=== PATIENT | female | born 1980 | race Caucasian/White ===

== ENCOUNTER 2016-10-09 23:58 | Emergency (ER) | payer MEDICAID ==
[2016-10-10 00:08] VITALS: BP 134/73
--- NOTE | 2016-10-10 02:32 | EDM.PDOC ---
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 LMP 08/02/2016. G8 T3 . She states that she developed lower abdominal cramps this afternoon. No vaginal bleeding. No recent nausea, vomiting , diarrhea, urinary symptoms, or fever. She states that she has had constipation for the past 2 days. No prior similar symptoms, however, the patient states that with her 4 previous miscarriages, she did not have vaginal bleeding, either. The patient's Plant Wire Chief is Dr. Wagner, however, she has not seen her for this . The patient states that she was seen at the [facility] 2 days ago, where a progesterone level was checked and found to be low, and a quantitative hCG was checked, with the results still pending. The patient has not had an obstetric ultrasound for this . The patient's PCP is Fiona Tello. 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: 3 - Past Surgical History Female Surgical History: Reports: Section (x 3), D&C (x 2), Other ( See Below) (D&E x 1) Oncologic Surgical History: Reports: None Social & Family History - Family History Family Medical History: Noncontributory - Tobacco Use Smoking Status *Q: Never Smoker Second Hand Smoke Exposure: No - Alcohol Use Alcohol Use History: No Days Per Week of Alcohol Use: 0 - Recreational Drug Use Recreational Drug Use: No - Living Situation & Occupation Living situation: Reports: , with Spouse, with Family (3 kids) 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) ED ROS GENERAL - Review of Systems Review Of Systems: See Below Constitutional: Reports: No Symptoms HEENT: Reports: No Symptoms Respiratory: Reports: No Symptoms Cardiovascular: Reports: No Symptoms Endocrine: Reports: No Symptoms GI/Abdominal: Reports: No Symptoms : Reports: No Symptoms Musculoskeletal: Reports: No Symptoms Skin: Reports: No Symptoms Neurological: Reports: No Symptoms Psychiatric: Reports: No Symptoms Hematologic/Lymphatic: Reports: No Symptoms Immunologic: Reports: No Symptoms ED EXAM - Physical Exam Exam: See Below Exam Limited By: No Limitations General Appearance: Alert, WD/WN, No Apparent Distress Eye Exam: Bilateral Eye: Normal Inspection Ears: Normal External Exam, Hearing Grossly Normal Nose: Normal Inspection, No Blood Throat/Mouth: Normal Inspection, Normal Lips, Normal Voice, No Airway Compromise Head: Atraumatic, Normocephalic Neck: Normal Inspection, Full Range of Motion Respiratory/Chest: No Respiratory Distress, Lungs Clear, Normal Breath Sounds, No Accessory Muscle Use Cardiovascular: Normal Peripheral Pulses, Regular Rate, Rhythm, No Gallop, No JVD, No Murmur, No Rub GI/Abdominal Exam: Normal Bowel Sounds, Soft, Non-Tender, No Organomegaly, No Distention, No Abnormal Bruit, No Mass, Pelvis Stable Rectal Exam: Deferred Back Exam: Normal Inspection, Full Range of Motion Extremities: Normal Inspection, Normal Range of Motion, No Pedal Edema, Normal Capillary Refill Neurological: Alert, Oriented, Normal Cognition, No Motor/Sensory Deficits Psychiatric: Normal Affect Skin Exam: Warm, Dry, Intact, Normal Color, No Rash Lymphatic: No Adenopathy Course - Vital Signs Last Recorded V/S: Last Vital Signs Temp 36.3 C 10/10/16 00:05 Pulse 82 10/10/16 00:05 Resp 16 10/10/16 00:05 BP 134/73 10/10/16 00:05 Pulse Ox 100 10/10/16 00:05 - Orders/Labs/Meds Labs: Laboratory Tests 10/10/16 10/10/16 Range/Units 00:15 00:55 HCG, Quant 96242.0 mIU/mL Urine Color Light yellow (Yellow) Urine Appearance Clear (Clear) Urine pH 6.5 (5.0-8.0) Ur Specific Martin 1.015 (1.005-1.030) Urine Protein Negative (Negative) Urine Glucose (UA) Negative (Negative) Urine Ketones Negative (Negative) Urine Occult Blood 1+ H (Negative) Urine Nitrite Negative (Negative) Urine Bilirubin Negative (Negative) Urine Urobilinogen 0.2 (0.2-1.0) Ur Leukocyte Esterase Trace H (Negative) Urine RBC 0-5 (0-5) /hpf Urine WBC 0-5 (0-5) /hpf Ur Epithelial Cells 0-5 (0-5) /hpf Urine Bacteria Few (FEW) /hpf Urine Mucus Not seen (FEW) /hpf - Re-Assessments/Exams Free Text/Narrative Re-Assessment/Exam: 10/10/16 02:28 Test results discussed with the patient and her . As the patient's presentation is not a medical emergency, ultrasound is not available in the middle the night. I offered to arrange for an obstetric ultrasound at 7:30 this morning, but she declined. She will follow-up with Dr. Wagner at a previously scheduled appointment. Departure - Departure Time of Disposition: 02:29 Disposition: Home, Self-Care 01 Condition: Good Clinical Impression: Abdominal cramps, - Discharge Information Instructions: First Trimester of Referrals: Sharmin Wagner MD [Primary Care Provider] - Forms: ED Department Discharge Additional Instructions: You were seen in the emergency room for lower abdominal cramps, without vaginal bleeding. Workup in the ER included a urinalysis and quantitative hCG. Your urinalysis was normal. You do not have a urinary tract infection. Your quantitative hCG is 61,789. An offer of an obstetric ultrasound to be performed at 7:30 this morning was offered, but declined. Please follow-up with your Plant Wire Chief, Dr. Wagner, at your previously scheduled appointment. If any other problems, please do not hesitate to return to the ER.
== END 2016-10-10 02:40 | disposition home or self-care (01) ==
LOC: JD.ED 23:58
DX: O99.89 Other specified diseases and conditions complicating pregnancy, childbirth and the puerperium (principal); R10.30 Lower abdominal pain, unspecified; Z88.5 Allergy status to narcotic agent; Z88.8 Allergy status to other drugs, medicaments and biological substances; Z3A.09 9 weeks gestation of pregnancy
CPT/HCPCS: 36415; 81001; 84702; 99282; 99284

== ENCOUNTER 2017-11-21 18:27 | Inpatient (IN) | payer MEDICAID ==
[2017-11-21] MEDS ORDERED: Lactated Ringers 1,000 ML IV ONE (19:24)
[2017-11-21] MEDS ORDERED: Ondansetron 4 MG in Sodium Chloride 0.9% 50 ML IV PRN (19:26)
[2017-11-21] MEDS ORDERED: Metoclopramide 10 MG/2 ML SDV ONE (20:04)
[2017-11-21] MEDS ORDERED: Citric Acid/Sodium Citrate Solution 30 ML Cup ONE (20:05)
[2017-11-21] MEDS ORDERED: Lactated Ringers 1,000 ML ONE ×3 (20:08→22:03)
[2017-11-21] MEDS ORDERED: Sodium Chloride 0.9% 10 ML Syringe FLUSH PRN (20:10)
[2017-11-21] MEDS ORDERED: Citric Acid/Sodium Citrate Solution 30 ML Cup PO ONE (20:10)
[2017-11-21] MEDS ORDERED: ceFAZolin 2 GM in Premix Bag 1 BAG IV ONE (20:10)
[2017-11-21] MEDS ORDERED: Metoclopramide 10 MG/2 ML SDV IVPUSH ONE (20:10)
[2017-11-21] MEDS ORDERED: Ondansetron 4 MG/2 ML SDV IVPUSH ONE (20:11)
[2017-11-21] MEDS ORDERED: Bupivacaine 0.75%/D5W 2 ML Amp ONE (20:13)
[2017-11-21] MEDS ORDERED: Oxytocin 10 Units/1 ML SDV ONE ×2 (20:13→22:35)
[2017-11-21] MEDS ORDERED: Morphine PF 10 MG/10 ML SDV ONE (20:13)
[2017-11-21] MEDS ORDERED: Ondansetron 4 MG/2 ML SDV ONE (20:13)
[2017-11-21] MEDS ORDERED: Oxytocin/Lactated Ringers 10 UNIT/1,000 ML BAG IV SCH (20:15)
[2017-11-21] MEDS ORDERED: Lactated Ringers 1,000 ML IV SCH (20:15)
--- NOTE | 2017-11-21 20:16 | PCM.LDHP ---
L&D History of Present Illness - General Date of Service: 11/21/17 Admit Problem/Dx: Admission Diagnosis/Problem Admission Diagnosis/Problem 11/21/17 20:06 Lori is a 37-year-old 9 para 3053 white female admitted in early labor. She is gregorio every 3 minutes, pain is described as 8 on a scale of 10. She has a history of 3 sections and has a repeat scheduled for 11/30/2017 which happens to be her due date. Source of Information: Patient History Limitations: Reports: No Limitations - History of Present Illness Introduction:: 37-year-old 9 para 3053 female with NISHI of 11/30/2017 presently at 37-6/ 7 weeks gestational age is had 2 days of contractions which now this afternoon have increased in frequency and intensity. They're occurring every 3 minutes reportedly 8 on a pain scale of 10. She denies any bleeding, any leakage of fluid. The baby has been active. Patient for repeat section. The procedure, risks, benefits, alternatives of care including a trial of labor I discussed used to tilt patient. She appears understand, wishes to proceed and has signed a consent. 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 Her is dated by an ultrasound done on 2017 but also an exact, definite LMP of 03/02/2017. Patient was seen early in the on 04/27/2017 at 8 weeks gestational age. She is seen on a regular basis. She made approximately a Ree pound weight gain during the course of principal 152 pounds to 155 pounds. Her vital signs are stable throughout . Fundal height growth was appropriate. Plan was to do a repeat section on 11/30/2017. Blood is A+ with negative antibody screen. First laboratory testing showed a hemoglobin 11.2 and platelets of 290,000. Rubella titer shows immunity. Second trimester hemoglobin was 10.6 at which time patient was started on iron therapy. Her platelets are 254,000. One-hour GTT was elevated at 157. 139. TSH was 2.0normal. Her RPR was nonreactive. Hepatitis B surface antigen and hepatitis C titers were both nonreactive. Chlamydia and gonorrhea both negative. She is group B strep negative. Allergies: 1. Dilaudid which causes her swelling 2. Gluten Medications: 1. vitamins daily 2. Baby aspirin daily 3. Iron supplementation daily Past medical history: 1. Recurrent loss 5 Past surgical history: 1. 3 2. D&C 3 4. Hysteroscopy 5. Diagnostic laparoscopy Family history: Mother and father alive and well. Patient has 3 siblings. They are all healthy. No anesthesia, bleeding, blood clotting problems noted family. Social history patient is , is José, she does not use any significant most alcohol drugs tobacco. 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 She lives in [place]. Review of systems: In general patient presently is having contractions causing her pain 10/29. Ports good activity. She denies any bleeding or loss of vaginal fluid. She has had some nausea and last 2 days with contractions and has had some diarrhea. No one else is sick around her. Skin: Negative Cardiovascular: No chest pain or exercise tolerance Respiratory: No active symptoms or shortness of breath Breasts: Unremarkable. Changes only associated with . Patient undecided about breast-feeding. GI: Nausea and emesis along with diarrhea as above. : Increased fundal height consistent with dates Musculoskeletal: Some edema in lower extremities Neurological: Negative Physical exam: Vital signs are stable, patient is afebrile. On last evaluation in clinic her blood pressure was 126/70. As 92. Weight was 155 pounds. Total weight was 152 pounds. In general patient is well-developed, well-nourished, pleasant feels stated age in acute distress. Skin is warm dry without lesions. HEENT, neck and back within normal Lungs are clear with good breath sounds in all lung stafford. Cardiovascular exam shows regular and rhythm without murmurs. Breast exam is deferred. Abdomen is previous with fundal height consistent with 37 week . Cervical exam done by the nurse shows cervix to be 1 cm, thin, soft. Extremities neurological exam are grossly within normal limits. 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: , Spontaneous Other OB/BYN History: cervical cryotherapy Endocrine/Metabolic History: Reports: Diabetes, Gestational - Past Surgical History HEENT Surgical History: Reports: Oral Surgery Other HEENT Surgeries/Procedures: [place] teeth Female Surgical History: Reports: Section, D&C, Dilitation & Evacuation, Other (See Below) Oncologic Surgical History: Reports: None Social & Family History - Family History Family Medical History: Noncontributory - Tobacco Use Smoking Status *Q: Former Smoker Used Tobacco, but Quit: No Second Hand Smoke Exposure: No - Caffeine Use Caffeine Use: Reports: None - Recreational Drug Use Recreational Drug Use: No - Living Situation & Occupation Living situation: Reports: , with Spouse, with Family (3 kids) 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) H&P Review of Systems - Review of Systems: Review Of Systems: See Below L&D Exam - Exam Exam: See Below - Vital Signs Vital Signs: Last Vital Signs Temp 36.8 C 11/21/17 19:19 Pulse 87 11/21/17 19:19 Resp 18 11/21/17 19:19 BP 127/76 11/21/17 19:19 Pulse Ox Weight: 72.121 kg - Patient Data Lab Results Last 24 hrs: Laboratory Results - last 24 hr 11/21/17 Range/Units 19:40 WBC 8.94 (3.98-10.04) K/mm3 RBC 2.91 L (3.98-5.22) M/mm3 Hgb 8.3 L (11.2-15.7) gm/L Hct 25.6 L (34.1-44.9) % MCV 88.0 (79.4-94.8) fl MCH 28.5 (25.6-32.2) pg MCHC 32.4 (32.2-35.5) g/dl RDW Std Deviation 42.8 (36.4-46.3) fL Plt Count 218 (182-369) K/mm3 MPV 9.3 L (9.4-12.3) fl Result Diagrams: 11/21/17 19:40 Problem List Initiated/Reviewed/Updated: Yes Orders Last 24hrs: Active Orders 24 hr Category Date Time Status NPO [Nothing Per Oral Diet] [DIET] Diet 11/21/17 Dinner Active CMP [COMPREHENSIVE METABOLIC PN,CMP] [CHEM] Stat Lab 11/21/17 19:40 Received TYPE AND SCREEN [BBK] Stat Lab 11/21/17 19:40 Received UA W/MICROSCOPIC [URIN] Routine Lab 11/21/17 19:24 Ordered Lactated Ringers [Ringers, Lactated] 1,000 ml Med 11/21/17 19:24 Active IV .BOLUS Ondansetron [Zofran] 4 mg Med 11/21/17 19:26 Active Sodium Chloride 0.9% [Normal Saline] 50 ml IV Q4H Schedule Procedure [COMM] Stat Oth 11/21/17 20:05 Ordered Medication Orders Lactated Ringer's (Ringers, Lactated) 1,000 mls @ 999 mls/hr IV .BOLUS ONE Stop: 11/21/17 20:24 Last Admin: 11/21/17 19:20 Dose: 999 mls/hr Ondansetron HCl 4 mg/ Sodium (Chloride) 52 mls @ 100 mls/hr IV Q4H PRN PRN Reason: nausea and vomiting Assessment/Plan Comment:: 1. 37-6/7 week intrauterine , active labor, 2 previous 3 with desire for repeat section 2. Group B strep screen negative 3. Undecided about nursing 4. They'll titer shows immunity 5. History of recurrent losses first and second trimester. 6. History of baby aspirin usage during recent Plan: 1. Repeat lower segment transverse section through Rohit skin incision under spinal block. Procedure, risks, benefits, alternatives of care discussed in detail patient and her . They appear to understand, wish to proceed and signed a consent 2. DVT prophylaxis with SCDs 3. Infection prophylaxis with Ancef 2 g IV preop 4. Routine preoperative lab evaluation CBC, urinalysis, type and screen 5. Encouraged nursing.
[2017-11-21] MEDS ORDERED: Bupivacaine 0.5% 30 ML SDV ONE (20:17)
[2017-11-21] MEDS ORDERED: ePHEDrine 50 MG/ML SDV IVPUSH PRN ×2 (21:23→23:20)
[2017-11-21] MEDS ORDERED: Ondansetron 4 MG/2 ML SDV IVPUSH PRN (21:23)
[2017-11-21] MEDS ORDERED: fentaNYL 100 MCG/2 ML SDV IVPUSH PRN (21:23)
[2017-11-21] MEDS ORDERED: Meperidine PF 50 MG/ML Syringe IVPUSH PRN (21:23)
[2017-11-21] MEDS ORDERED: diphenhydrAMINE 50 MG/ML SDV IVPUSH PRN ×2 (21:23→23:20)
--- NOTE | 2017-11-21 21:23 | PCM.PREANE ---
Preanesthetic Assessment - Procedure Proposed Procedure: Urgent C Section - Anesthesia/Transfusion/Family Hx Anesthesia History: Prior Anesthesia Without Reaction Family History of Anesthesia Reaction: No Transfusion History: No Prior Transfusion(s) - Review of Systems General: No Symptoms Pulmonary: No Symptoms Cardiovascular: No Symptoms Gastrointestinal: No Symptoms Neurological: No Symptoms Other: Reports: Diabetes (Gestational DM) - Physical Assessment NPO Status Date: 11/21/17 NPO Status Time: 15:00 Respiratory Rate: 18 Vital Signs: Last Vital Signs Temp 36.8 C 11/21/17 19:19 Pulse 87 11/21/17 19:19 Resp 18 11/21/17 19:19 BP 127/76 11/21/17 19:19 Pulse Ox Height: 1.5 m Weight: 72.121 kg ASA Class: 2E Mental Status: Alert & Oriented x3 Airway Class: Mallampati = 2 Dentition: Reports: Normal Dentition Thyro-Mental Finger Breadths: 3 Mouth Opening Finger Breadths: 3 ROM/Head Extension: Full Lungs: Clear to Auscultation, Normal Respiratory Effort Cardiovascular: Regular Rate, Regular Rhythm - Lab Values: Laboratory Last Values WBC 8.94 K/mm3 (3.98-10.04) 11/21/17 19:40 RBC 2.91 M/mm3 (3.98-5.22) L 11/21/17 19:40 Hgb 8.3 gm/L (11.2-15.7) L 11/21/17 19:40 Hct 25.6 % (34.1-44.9) L 11/21/17 19:40 MCV 88.0 fl (79.4-94.8) 11/21/17 19:40 MCH 28.5 pg (25.6-32.2) 11/21/17 19:40 MCHC 32.4 g/dl (32.2-35.5) 11/21/17 19:40 RDW Std Deviation 42.8 fL (36.4-46.3) 11/21/17 19:40 Plt Count 218 K/mm3 (182-369) 11/21/17 19:40 MPV 9.3 fl (9.4-12.3) L 11/21/17 19:40 Sodium 140 mEq/L (136-145) 11/21/17 19:40 Potassium 3.6 mEq/L (3.5-5.1) 11/21/17 19:40 Chloride 107 mEq/L (98-107) 11/21/17 19:40 Carbon Dioxide 22 mEq/L (21-32) 11/21/17 19:40 Anion Gap 14.6 (5-15) 11/21/17 19:40 BUN 5 mg/dL (7-18) L 11/21/17 19:40 Creatinine 0.7 mg/dL (0.55-1.02) 11/21/17 19:40 Est Cr Clr Drug Dosing 79.04 mL/min 11/21/17 19:40 Estimated GFR (MDRD) > 60 mL/min (>60) 11/21/17 19:40 BUN/Creatinine Ratio 7.1 (14-18) L 11/21/17 19:40 Glucose 103 mg/dL (74-106) 11/21/17 19:40 Calcium 7.8 mg/dL (8.5-10.1) L 11/21/17 19:40 Total Bilirubin 0.1 mg/dL (0.2-1.0) L 11/21/17 19:40 AST 12 U/L (15-37) L 11/21/17 19:40 ALT 12 U/L (14-59) L 11/21/17 19:40 Alkaline Phosphatase 148 U/L (46-116) H 11/21/17 19:40 Total Protein 5.8 g/dl (6.4-8.2) L 11/21/17 19:40 Albumin 2.0 g/dl (3.4-5.0) L 11/21/17 19:40 Globulin 3.8 gm/dL 11/21/17 19:40 Albumin/Globulin Ratio 0.5 (1-2) L 11/21/17 19:40 - Allergies Allergies/Adverse Reactions: Allergies Allergy/AdvReac Type Severity Reaction Status Date / Time gluten Allergy Swelling Verified 10/10/16 00:08 hydromorphone HCl Allergy Rash Verified 10/10/16 00:08 [From Dilaudid] - Blood Blood Available: No Product(s) Available: None - Anesthesia Plan Pre-Op Medication Ordered: None - Acknowledgements Anesthesia Type Planned: Spinal (with duramorph) Pt an Appropriate Candidate for the Planned Anesthesia: Yes Alternatives and Risks of Anesthesia Discussed w Pt/Guardian: Yes Pt/Guardian Understands and Agrees with Anesthesia Plan: Yes 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: , 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 Other OB/BYN History: cervical cryotherapy Endocrine/Metabolic History: Reports: Diabetes, Gestational - Past Surgical History HEENT Surgical History: Reports: Oral Surgery Other HEENT Surgeries/Procedures: [place] teeth Female Surgical History: Reports: Section, D&C, Dilitation & Evacuation, Other (See Below) Oncologic Surgical History: Reports: None - SUBSTANCE USE Smoking Status *Q: Former Smoker Second Hand Smoke Exposure: No Recreational Drug Use History: No - HOME MEDS Home Medications: Home Meds Vits #93/Iron Fum/FA [ Formula Tablet] 1 tab PO DAILY 10/10/16 [History] Aspirin [[place] Aspirin] 81 mg PO DAILY 11/21/17 [History] - CURRENT (IN HOUSE) MEDS Current Meds: Current Medications Ondansetron HCl 4 mg/ Sodium (Chloride) 52 mls @ 100 mls/hr IV Q4H PRN PRN Reason: nausea and vomiting Lactated Ringer's (Ringers, Lactated) 1,000 mls @ 125 mls/hr IV ASDIRECTED LESVIA Oxytocin/Lactated Ringer's (Pitocin In Lr 10 Units/1,000 Ml) 10 unit in 1,000 mls @ 100 mls/hr IV ASDIRECTED LESVIA; Protocol Sodium Chloride (Saline Flush) 10 ml FLUSH ASDIRECTED PRN PRN Reason: Keep Vein Open Discontinued Medications Bupivacaine HCl (Marcaine 0.5%) Confirm Administered Dose 30 ml .ROUTE .STK-MED ONE Stop: 11/21/17 20:18 Bupivacaine HCl/Dextrose (Marcaine 0.75% Spinal) Confirm Administered Dose 2 ml .ROUTE .STK-MED ONE Stop: 11/21/17 20:14 Citric Acid/Sodium Citrate (Bicitra Solution) Confirm Administered Dose 30 ml .ROUTE .STK-MED ONE Stop: 11/21/17 20:06 Last Admin: 11/21/17 20:10 Dose: 30 ml Citric Acid/Sodium Citrate (Bicitra Solution) 30 ml PO ONETIME ONE Stop: 11/21/17 20:11 Last Admin: 11/21/17 20:21 Dose: Not Given Lactated Ringer's (Ringers, Lactated) 1,000 mls @ 999 mls/hr IV .BOLUS ONE Stop: 11/21/17 20:24 Last Admin: 11/21/17 19:20 Dose: 999 mls/hr Lactated Ringer's (Ringers, Lactated) Confirm Administered Dose 1,000 mls @ as directed .ROUTE .STK-MED ONE Stop: 11/21/17 20:09 Last Admin: 11/21/17 20:13 Dose: 999 mls/hr Cefazolin Sodium/Dextrose 2 gm (/ Premix) 50 mls @ 100 mls/hr IV ONETIME ONE Stop: 11/21/17 20:39 Lidocaine HCl (Xylocaine-Mpf 1%) Confirm Administered Dose 5 mls @ as directed .ROUTE .STK-MED ONE Stop: 11/21/17 20:14 Metoclopramide HCl (Reglan) Confirm Administered Dose 10 mg .ROUTE .STK-MED ONE Stop: 11/21/17 20:05 Last Admin: 11/21/17 20:10 Dose: 10 mg Metoclopramide HCl (Reglan) 10 mg IVPUSH ONETIME ONE Stop: 11/21/17 20:11 Last Admin: 11/21/17 20:21 Dose: Not Given Morphine Sulfate (Duramorph Pf) Confirm Administered Dose 10 mg .ROUTE .STK-MED ONE Stop: 11/21/17 20:14 Ondansetron HCl (Zofran) 4 mg IVPUSH ONETIME ONE Stop: 11/21/17 20:12 Last Admin: 11/21/17 19:48 Dose: 4 mg Ondansetron HCl (Zofran) Confirm Administered Dose 4 mg .ROUTE .STK-MED ONE Stop: 11/21/17 20:14 Oxytocin (Pitocin) Confirm Administered Dose 20 unit .ROUTE .STK-MED ONE Stop: 11/21/17 20:14
[2017-11-21] MEDS ORDERED: ceFAZolin 1 GM Vial ONE (21:39)
[2017-11-21] MEDS ORDERED: Meperidine PF 50 MG/ML Syringe ONE (21:56)
--- NOTE | 2017-11-21 22:15 | PCM.POSTAN ---
POST ANESTHESIA ASSESSMENT - MENTAL STATUS Mental Status: Alert, Oriented - VITAL SIGNS Pulse Rate: 70 SaO2: 100 Resp Rate: 18 Blood Pressure: 113/66 Temperature: 36.6 C - RESPIRATORY Respiratory Status: Respiratory Rate WNL, Airway Patent, O2 Saturation Stable, Supplemental Oxygen - CARDIOVASCULAR CV Status: Pulse Rate WNL, Blood Pressure Stable - GASTROINTESTINAL GI Status: No Symptoms - PAIN Pain Score: 0 - POST OP HYDRATION Hydration Status: Adequate & Stable
--- NOTE | 2017-11-21 22:16 | PCM.OPNOTE ---
- General Post-Op/Procedure Note Date of Surgery/Procedure: 11/21/17 Operative Procedure(s): Repeat lower segment transverse section through Pfannenstiel skin incision Findings: Uterus tubes and ovaries consistent with term . Baby in vertex presentation. Amniotic fluid is clear. Cervix was approximately 2 cm dilated- adequate to allow egress of blood. Patient seemed to have increased bleeding propensity upon closure of the uterus. Pre Op Diagnosis: 37-6/7 week intrauterine , history of previous C- section 3, active labor Post-Op Diagnosis: Same with delivery of viable, anderson, male with Apgars of 8 and 8, weight 6 lbs. 7 oz. at 2102 hrs. on 11/21/2017 Anesthesia Technique: Spinal Other Anesthesia Type: Marcaine 0.5%20 mL totallocal Primary Surgeon: Dominick Tamayo Secondary Surgeon: Alexandra Elizondo Anesthesia Provider: Virgil Moise Music Industry Intern: Theresa Don Reason Music Industry Intern Was Necessary: Assistance, retraction, patient safety, quality of care Role of Music Industry Intern: Retraction, assistance Fluid Replacement, Intraop: 1,500 Output, Urine Amount: 125 EBL in mLs: 1,000 Drain/Tube Comments:: Indwelling bladder catheter Complications: None Condition: Good Free Text/Narrative:: Surgery duration: 60 minutes Procedure: The patient is appropriately consented. Patient was transferred to the room and placed in a sitting position. Spinal anesthesia was administered. After confirmation of adequate anesthesia patient was placed in a supine position with a wedge under her right side to facilitate left lateral positioning. The patient was prepped and draped in usual fashion after Cortez catheter was already placed . The anesthetic was checked and found to be adequate. 20 mL of Marcaine 0.5% was injected locally in the Pfannenstiel incision site. The Pfannenstiel skin incision was then made and carried down through skin, subcutaneous and fascial layers. The fascia was then undermined superiorly and inferiorly to allow for adequate operating room. The recti muscles midline and preperitoneal fat was bluntly dissected. Peritoneal cavity was entered longitudinally. The vesicouterine peritoneum was then incised transversely and bladder flap was developed. Myometrium was incised transversely to the level of the amniotic sac. This incision was extended bilaterally in a blunt fashion. The amniotic sac was then ruptured resulting in clear amniotic fluid. A hand is placed in the low uterine segment and the baby's head was brought forth through the incision. The baby was completely delivered using fundal pressure in a routine fashion. The nose and mouth were bulb suctioned. Baby's cord was clamped x2 cut and baby was handed off to attending creel cleaner Dr campoverde. Placenta was expressed after cord blood was obtained. Uterus was then exteriorized to allow for easier closure. The cervix was assessed and found to be dilated adequately to allow egress of blood. The uterus was closed in 2 layers. The first layer a running locked suture of 0 Monocryl, the second layer a running locked vertical mattress suture of 0 Monocryl. Multiple Slnrwc-fu-arzxr sutures of 0 Monocryl were placed at the left and of incision to control 2 bleeders. Eventually Gelfoam was used in addition to sutures and hemostasis was obtained. Uterus was placed back in the abdominal cavity and Hemostasis was again confirmed at this time. Interceed adhesion flax was then placed over this area to reduce the likelihood of adhesion formation. Sponge instrument needle counts are correct. The uterus was returned to the abdominal cavity and lateral gutters were cleared of blood. Once again sponge needle counts are correct. The anterior abdominal wall was closed with a #1 PDS suture from angle to angle. The subcutaneous area was found to be free of any bleeders. interrupted sutures of 3-0 Monocryl were used to reapproximate the subcutaneous layer.Skin was closed with a running subcuticular stitch of 3-0 Monocryl in a vertical mattress suture fashion using a Richy needle. Prineo mesh/glue was then applied to further approximate the incision. It should be noted that patient received 2 g of Ancef preoperatively for infection prophylaxis and had Pitocin infused after delivery of the placenta to facilitate uterine contraction. She also had sequential compression stockings in place for DVT prophylaxis. Patient was discharged from the operating room in satisfactory condition.
[2017-11-21] MEDS ORDERED: Gelatin Sponge,Absorbable 12-7 mm Sponge TOP ONE (22:24)
[2017-11-21] MEDS ORDERED: Ondansetron 4 MG/2 ML SDV IV PRN (23:20)
[2017-11-21] MEDS ORDERED: Docusate Sodium 100 MG Cap PO PRN (23:20)
[2017-11-21] MEDS ORDERED: Acetaminophen/oxyCODONE 325-5 MG Tab PO PRN (23:20)
[2017-11-21] MEDS ORDERED: Dextrose 5%-Lactated Ringers 1,000 ML IV SCH (23:20)
[2017-11-21] MEDS ORDERED: Naloxone 0.4 MG/ML SDV IVPUSH PRN (23:20)
[2017-11-21] MEDS ORDERED: Lanolin 100% Cream 7 GM Tube TOP PRN (23:20)
--- NOTE | 2017-11-22 08:12 | PCM.SN ---
- Free Text/Narrative Note: Lori is a 37-year-old 9 now para 4054 white female who was admitted 11/21/2017 in early labor. Lori had a history of 3 sections, and had been scheduled for a RCS 11/30/2017. She underwent RCS 11/21/2017 due to labor onset at 37-6/7 wks gestational age and delivered a viable, anderson, male with Apgars of 8 and 8, weight 6 lbs. 7 oz. at 2102 hrs. on 11/21/2017. SUBJECTIVE Patient is well-developed, well-nourished and without jaundice or pallor. She denies chest pain/SOB/cough/dyspnea, fevers/chills, excessive bleeding/ discharge from the vagina or incision site, GA/blurred vision/lightheadedness. On exam, fundus of uterus is found to be just below the level of the umbilicus, incision site is healing well without pus/heat/redness/inflammation. LE edema could not be appreciated. Lungs are free of adventitious sounds, no M/R/G on auscultation of heart. OBJECTIVE VS T: 36.6 HR: 95 BP: 123/67 RR:18 O2: 100% RA Hgb: 7.9 Hct: 24.6 ASSESSMENT Lori appears to be healing well from her . Hemoglobin is low, however her pre-operative hemoglobin was only slightly higher at 8.3, and she does not appear to be symptomatic. Patient plans to bottle-feed. PLAN 1. Monitor hemoglobin level and watch for symptomatic anemia 2. Continue to monitor for s/sx infection 3. Support patient's decision to bottlefeed. 4. Reassess tomorrow morning 5. Plan to d/c home tomorrow
--- NOTE | 2017-11-22 18:29 | PCM48HPAN ---
Post Anesthesia Note - EVALUATION WITHIN 48HRS OF ANESTHETIC Vital Signs in Normal Range: Yes Patient Participated in Evaluation: Yes Respiratory Function Stable: Yes Airway Patent: Yes Cardiovascular Function Stable: Yes Hydration Status Stable: Yes Pain Control Satisfactory: Yes Nausea and Vomiting Control Satisfactory: Yes Mental Status Recovered: Yes
[2017-11-22] MEDS: Ibuprofen 600 MG Tab PO PRN (21:30)
[2017-11-23] MEDS: Ibuprofen 600 MG Tab PO PRN (06:03)
[2017-11-23 09:25] VITALS: BP 129/84
--- NOTE | 2017-11-23 09:36 | PCM.SN ---
- Free Text/Narrative Note: note: Patient is doing well on postoperative day 2. Minimal lochia, voiding well, ambulated without problems. Nursing without concerns. She is desiring to go home later today if possible Patient is afebrile, vital signs are stable Abdomen is flat, soft, uterus is below the umbilicus and is firm and nontender. Incision appears to be dry, intact. Legs are nontender. Assessment: Postop recovery going well. Plan: Routine care. Patient be discharged home later today.
--- NOTE | 2017-11-23 09:42 | PCM.DCSUM1 ---
Discharge Summary - Hospital Course Free Text/Narrative:: Lori is a 37-year-old multigravida white femaleDelivery by repeat on 11/21/2017. At 37-6/7 weeks gestational age and was seen in labor and delivery fo active labor. She was reporting pain 8 on a scale of 10. Contractions were occurring every 2-3 minutes. History of 3 previous sections and repeat section was recommended. Had been set up for 11/30/2017. Patient delivered a viable, anderson female with Apgars of 8 and 8, weight 6 lbs. 7 oz. at 2102 hrs. on 11/22/2007. Postoperatively patient has done very well. She is had minimal pain. She is ambulating well. Vital signs are stable and patient is desiring discharge home. Incision appears to be intact. Bowel and bladder activity and return to near normal. Diagnosis: Stroke: No - Discharge Data Discharge Date: 11/23/17 Discharge Disposition: Home, Self-Care 01 Condition: Good - Patient Summary/Data Operative Procedure(s) Performed: Repeat lower segment transverse section through Pfannenstiel skin incision - Patient Instructions Diet: Regular Diet as Tolerated Activity: As Tolerated (No intercourse or tampons until bleeding resolves and patient's been seen back in clinic. No lifting greater than 15 pounds or driving a car 1 week) Driving: Do Not Drive Showering/Bathing: May Shower Wound/Incision Care: Keep Operative Site/Wound Site Clean and Dry Notify Provider of: Fever, Increased Pain, Swelling and Redness, Drainage, Nausea and/or Vomiting - Discharge Plan *PRESCRIPTION DRUG MONITORING PROGRAM REVIEWED*: No *COPY OF PRESCRIPTION DRUG MONITORING REPORT IN PATIENT LACY: No Home Medications: Home Meds Vits #93/Iron Fum/FA [ Formula Tablet] 1 tab PO DAILY 10/10/16 [History] Acetaminophen/oxyCODONE [Percocet 325-5 MG] 2 tab PO Q4H PRN #20 tablet [Rx] Ibuprofen [Motrin] 600 mg PO Q4H PRN tablet 11/23/17 [Rx] Patient Handouts: Delivery, Care After, Home Care Instructions for Mom Referrals: Sharmin Wagner MD [Primary Care Provider] - ([facility] - Discharge Summary/Plan Comment DC Time >30 min.: No Discharge Summary/Plan Comment: Discharge instructions: 1. Discharge home 2. Diet, activity and follow-up discussed with patient. Recommend regular diet. 3. Precautions given concern increased pain, bleeding, temperature, signs/ symptoms of DVT/PE. 4. Medications per home medication was printed, discussed with and given to the patient. 5. Return to clinic-Dr. Wagner at [facility] in 2 weeks. Diagnosis: 1. Term -delivered 2. History of previous 3 Condition: Good - Patient Data Vitals - Most Recent: Last Vital Signs Temp 36.2 C 11/23/17 09:00 Pulse 94 11/23/17 09:00 Resp 16 11/23/17 09:00 BP 129/84 11/23/17 09:00 Pulse Ox 99 11/23/17 09:00 Weight - Most Recent: 72.121 kg Lab Results - Last 24 hrs: Laboratory Results - last 24 hr 11/21/17 Range/Units 19:40 RPR Non-reactive (NONREACTIVE) Med Orders - Current: Current Medications Diphenhydramine HCl (Benadryl) 25 mg IVPUSH Q6H PRN PRN Reason: Itching or Nausea Docusate Sodium (Colace) 100 mg PO Q12H PRN PRN Reason: Constipation Emollient Ointment (Lansinoh Hpa) 0 gm TOP ASDIRECTED PRN PRN Reason: Sore Nipples Ephedrine Sulfate (Ephedrine Sulfate) 5 mg IVPUSH SEECOMMENT PRN PRN Reason: Other Ibuprofen (Motrin) 600 mg PO Q4H PRN PRN Reason: Pain Last Admin: 11/23/17 06:03 Dose: 600 mg Naloxone HCl (Narcan) 0.1 mg IVPUSH SEECOMMENT PRN PRN Reason: Respiratory Depression Ondansetron HCl (Zofran) 4 mg IV Q4H PRN PRN Reason: Nausea/Vomiting Oxycodone/Acetaminophen (Percocet 325-5 Mg) 2 tab PO Q4H PRN PRN Reason: Pain (moderate 4-6) Last Admin: 11/22/17 14:14 Dose: 1 tab Discontinued Medications Bupivacaine HCl (Marcaine 0.5%) Confirm Administered Dose 30 ml .ROUTE .STK-MED ONE Stop: 11/21/17 20:18 Last Admin: 11/21/17 20:58 Dose: 20 ml Bupivacaine HCl/Dextrose (Marcaine 0.75% Spinal) Confirm Administered Dose 2 ml .ROUTE .[facility]-MED ONE Stop: 11/21/17 20:14 Cefazolin Sodium (Ancef) Confirm Administered Dose 2 gm .ROUTE .[facility] ONE Stop: 11/21/17 21:40 Citric Acid/Sodium Citrate (Bicitra Solution) Confirm Administered Dose 30 ml .ROUTE .[facility]-MED ONE Stop: 11/21/17 20:06 Last Admin: 11/21/17 20:10 Dose: 30 ml Citric Acid/Sodium Citrate (Bicitra Solution) 30 ml PO ONETIME ONE Stop: 11/21/17 20:11 Last Admin: 11/21/17 20:21 Dose: Not Given Diphenhydramine HCl (Benadryl) 25 mg IVPUSH Q6H PRN PRN Reason: Pruritis Ephedrine Sulfate (Ephedrine Sulfate) 5 mg IVPUSH ASDIRECTED PRN PRN Reason: Hypotension Fentanyl (Sublimaze) 50 mcg IVPUSH Q5M PRN PRN Reason: Pain Gelatin (Gelfoam 12-7 Mm) Confirm Administered Dose 1 [facility]: 11/21/17 22:25 Last Admin: 11/21/17 21:28 Dose: 1 each Lactated Ringer's (Ringers, Lactated) 1,000 mls @ 999 mls/hr IV .BOLUS ONE Stop: 11/21/17 20:24 Last Admin: 11/21/17 19:20 Dose: 999 mls/hr Ondansetron HCl 4 mg/ Sodium (Chloride) 52 mls @ 100 mls/hr IV Q4H PRN PRN Reason: nausea and vomiting Lactated Ringer's (Ringers, Lactated) Confirm Administered Dose 1,000 mls @ as directed .ROUTE .[facility]-MED ONE Stop: 11/21/17 20:09 Last Admin: 11/21/17 20:13 Dose: 999 mls/hr Cefazolin Sodium/Dextrose 2 gm (/ Premix) 50 mls @ 100 mls/hr IV ONETIME ONE Stop: 11/21/17 20:39 Last Admin: 11/21/17 23:12 Dose: Not Given Lactated Ringer's (Ringers, Lactated) 1,000 mls @ 125 mls/hr IV ASDIRECTED LESVIA Oxytocin/Lactated Ringer's (Pitocin In Lr 10 Units/1,000 Ml) 10 unit in 1,000 mls @ 100 mls/hr IV ASDIRECTED LESVIA; Protocol Lidocaine HCl (Xylocaine-Mpf 1%) Confirm Administered Dose 5 mls @ as directed .ROUTE .STK-MED ONE Stop: 11/21/17 20:14 Lactated Ringer's (Ringers, Lactated) Confirm Administered Dose 1,000 mls @ as directed .ROUTE .STK-MED ONE Stop: 11/21/17 22:04 Lactated Ringer's (Ringers, Lactated) Confirm Administered Dose 1,000 mls @ as directed .ROUTE .STK-MED ONE Stop: 11/21/17 22:04 Dextrose/Lactated Ringer's (Dextrose 5%-Lactated Ringers) 1,000 mls @ 125 mls/ hr IV ASDIRECTED LESVIA Stop: 11/22/17 07:19 Last Admin: 11/22/17 05:08 Dose: 125 mls/hr Meperidine HCl (Demerol) 12.5 mg IVPUSH ONETIME PRN PRN Reason: Shivering Meperidine HCl (Demerol) Confirm Administered Dose 50 mg .ROUTE .STK-MED ONE Stop: 11/21/17 21:57 Metoclopramide HCl (Reglan) Confirm Administered Dose 10 mg .ROUTE .STK-MED ONE Stop: 11/21/17 20:05 Last Admin: 11/21/17 20:10 Dose: 10 mg Metoclopramide HCl (Reglan) 10 mg IVPUSH ONETIME ONE Stop: 11/21/17 20:11 Last Admin: 11/21/17 20:21 Dose: Not Given Morphine Sulfate (Duramorph Pf) Confirm Administered Dose 10 mg .ROUTE .STK-MED ONE Stop: 11/21/17 20:14 Ondansetron HCl (Zofran) 4 mg IVPUSH ONETIME ONE Stop: 11/21/17 20:12 Last Admin: 11/21/17 19:48 Dose: 4 mg Ondansetron HCl (Zofran) Confirm Administered Dose 4 mg .ROUTE .STK-MED ONE Stop: 11/21/17 20:14 Ondansetron HCl (Zofran) 4 mg IVPUSH ONETIME PRN PRN Reason: Nausea/Vomiting Oxytocin (Pitocin) Confirm Administered Dose 20 unit .ROUTE .STK-MED ONE Stop: 11/21/17 20:14 Oxytocin (Pitocin) Confirm Administered Dose 20 unit .ROUTE .STK-MED ONE Stop: 11/21/17 22:36 Sodium Chloride (Saline Flush) 10 ml FLUSH ASDIRECTED PRN PRN Reason: Keep Vein Open
== END 2017-11-23 11:51 | disposition home or self-care (01) | DRG 766 ==
LOC: JD.OB 18:27 → JD.OBCHECK 18:27 → JD.OB 20:10 → JD.OBCHECK 20:10 → OBSVTOIN 21:02 → JD.OB 21:03
PROVIDERS: ADMIT Obstetrics & Gynecology; ATTEND Obstetrics & Gynecology
PROC: 6A550ZT Pheresis of Cord Blood Stem Cells, Single (ICD-10-PCS; principal; 2017-11-21)
PROC: 10D00Z1 Extraction of Products of Conception, Low, Open Approach (ICD-10-PCS; principal; 2017-11-21)
DX: O34.211 Maternal care for low transverse scar from previous cesarean delivery (principal); Z37.0 Single live birth; N85.8 Other specified noninflammatory disorders of uterus; Z3A.37 37 weeks gestation of pregnancy; K90.0 Celiac disease; O99.62 Diseases of the digestive system complicating childbirth; Z88.5 Allergy status to narcotic agent; Z79.82 Long term (current) use of aspirin; Z87.891 Personal history of nicotine dependence
CPT/HCPCS: 01961; 36415; 59025; 80053; 85025; 85027; 86592; 86850; 86900; 86901; 94762; A9270-GY; C1765; J0690; J2175; J2270; J2405; J2590; J2765; J3490; J7042; J7120

== ENCOUNTER 2024-01-04 17:18 | Emergency (ER) | payer SELFPAY ==
[2024-01-04 17:55] LABS: BASOPHILS ABSOLUTE AUTO 0.1 K/mm3 (0.0-0.2); BASOPHILS PERCENT AUTO 0.6 % (0.0-1.0); EOSINOPHILS ABSOLUTE AUTO 0.2 K/mm3 (0.0-0.4); EOSINOPHILS PERCENT AUTO 2.4 % (0.0-6.0); HEMATOCRIT 31.7 % (37.0-47.0); HEMOGLOBIN 9.4 gm/dl (12.0-16.0); IMMATURE GRAN ABSOLUTE AUTO 0.01 K/mm3 (0.00-0.05); IMMATURE GRAN PERCENT AUTO 0.1 % (0.0-0.4); LYMPHOCYTES ABSOLUTE AUTO 2.2 K/mm3 (1.0-4.8); LYMPHOCYTES PERCENT AUTO 28.2 % (24.0-44.0); MEAN CORPUSCULAR HEMOGLOBIN 22.3 pg (28.0-32.0); MEAN CORPUSCULAR HGB CONC 29.7 g/dl (32.0-36.0); MEAN CORPUSCULAR VOLUME 75.1 fl (83.0-99.0); MEAN PLATELET VOLUME 8.9 fl (9.4-12.3); MONOCYTES ABSOLUTE AUTO 0.5 K/mm3 (0.0-0.8); MONOCYTES PERCENT AUTO 6.7 % (0.0-8.0); NEUTROPHILS ABSOLUTE AUTO 4.8 K/mm3 (1.8-7.7); PLATELET COUNT,PLT 432 K/mm3 (150-400); RED BLOOD CELL COUNT 4.22 M/mm3 (4.10-5.30); WHITE BLOOD CELL COUNT,WBC 7.77 K/mm3 (3.9-11.3)
[2024-01-04 18:06] LABS: A/G RATIO 0.8 (1-2); ALANINE AMINOTRANSFERASE,ALT 40 U/L (14-59); ALBUMIN 3.8 g/dl (3.4-5.0); ALKALINE PHOSPHATASE 99 U/L (46-116); ANION GAP 15.4 (5-15); ASPARTATE AMNIOTRANSFERASE,AST 39 U/L (15-37); BILIRUBIN TOTAL 0.2 mg/dL (0.2-1.0); BLOOD UREA NITROGEN,BUN 9 mg/dL (7-18); BUN/CREATININE RATIO 11.3 (14-18); CALCIUM 8.8 mg/dL (8.5-10.1); CARBON DIOXIDE,CO2 24 mEq/L (21-32); CHLORIDE,CL 102 mEq/L (98-107); CREATININE 0.8 mg/dL (0.55-1.02); EST CRCL DRUG DOSING (CG) 65.13 mL/min; ESTIMATED GFR 94 mL/min (>60); GLUCOSE RANDOM 97 mg/dL (70-99); POTASSIUM,K 3.4 mEq/L (3.5-5.1); PROTEIN TOTAL,TP 8.5 g/dl (6.4-8.2); SODIUM,NA 138 mEq/L (136-145); TROPONIN I HIGH SENSITIVITY < 4 pg/mL (<=51)
[2024-01-04 21:56] VITALS: BP 146/98; PULSE 93
== END 2024-01-04 21:54 | disposition home or self-care (01) ==
LOC: JD.ED 17:18
DX: R07.9 Chest pain, unspecified (principal); Z91.048 Other nonmedicinal substance allergy status; Z88.5 Allergy status to narcotic agent
CPT/HCPCS: 36415; 71045; 71045-26; 80053; 83540; 84484; 84703; 85025; 93005; 93010; 99284; 99285